=== PATIENT | female | born 1955 | race Caucasian/White ===

== ENCOUNTER → 2019-07-16 12:40 | Outpatient (BNVA) | payer OTHER, SELFPAY | PROVIDERS: Family Provider Family Medicine; Visit Provider Nurse Practitioner | DX: F41.1 Generalized anxiety disorder (principal); F34.1 Dysthymic disorder; F90.0 Attention-deficit hyperactivity disorder, predominantly inattentive type | CPT/HCPCS: 99213 ==

== ENCOUNTER 2019-08-11 09:56 | Outpatient (CLI) | payer OTHER, SELFPAY ==
--- NOTE | 2019-08-11 10:07 | XR_ITS ---
NOTE: Report was unsigned for reason: Order was edited. Original Signature date and time was: 08/11/19 AT 1212 WS: [id number] CERVICAL SPINE TECHNIQUE: 3 views of the cervical spine CLINICAL INFORMATION: PAIN COMPARISON: None. FINDINGS: Moderate spondylitic changes cervical spine with facet arthropathy. Normal C1-2 articulation. Straightening of the normal cervical lordosis. Spondylitic changes with disc space narrowing worse at C5-C6, C6-C7 and C7-T1. Normal prevertebral soft tissues. MTDD
--- NOTE | 2019-08-11 10:07 | XR_ITS ---
WS: [id number] THORACIC SPINE TECHNIQUE: 3 views of the thoracic spine CLINICAL INFORMATION: PAIN COMPARISON: None. FINDINGS: Mild thoracic curve convex left. Mild spondylitic changes. Disc space narrowing cervical spine worse at C6-7. No acute appearing thoracic compression fractures. Minimal chronic appearing anterior wedgin g lower thoracic spine. XR/XR thoracic spine 3V* [id number] IMPRESSION: 1. No acute thoracic spine findings 2. Mild thoracic curve convex left with mild spondylitic changes.
== END 2019-08-11 09:57 | disposition home or self-care (01) ==
LOC: RAD 10:04
PROVIDERS: Family Provider Family Medicine; PCP Family Medicine; Visit Provider Family Medicine
DX: M54.6 Pain in thoracic spine (principal); M54.12 Radiculopathy, cervical region; M47.812 Spondylosis without myelopathy or radiculopathy, cervical region
CPT/HCPCS: 72050; 72052; 72072

== ENCOUNTER 2019-08-23 08:23 | Outpatient (CLI) | payer OTHER, SELFPAY ==
--- NOTE | 2019-08-23 | MR_ITS ---
WS: [id number] MRI CERVICAL SPINE NONCONTRAST TECHNIQUE: Sagittal T1, T2 and STIR imaging. Axial T2, gradient, and fiesta imaging. CLINICAL INFORMATION: CERVICAL RADICULOPATHY COMPARISON: None. FINDINGS: Straightening of the normal cervical lordosis. Moderate spondylitic changes cervical spine with disc osteophyte complex C4-C7. Cord signal is normal. C2-C3: Mild left and no significant right foraminal narrowing. Spinal canal is patent. C3-C4: Mild disc osteophytic ridging. Moderate right and no significant left foraminal narrowing. Spi nal canal is patent. Mild facet arthropathy. Edema in the right C3-4 facets consistent with mild syno vitis. C4-C5: Small central disc osteophyte protrusion with slight contact of the cervical cord. Mild centra l canal stenosis. Mild bilateral foraminal narrowing. Mild facet arthropathy. C5-C6: Right pericentral disc osteophyte protrusion. Mild central canal stenosis. Slight contact of t he right ventral cervical cord. Mild to moderate left foraminal narrowing. C6-C7: Left pericentral disc osteophyte complex with contact of the left ventral cervical cord. Mild central canal stenosis. Moderate left foraminal narrowing. Right foramen is patent. C7-T1: Disc osteophyte complex with endplate ridging. Moderate bilateral left greater than right bony foraminal narrowing. Mild central canal stenosis. T2 hyperintense left thyroid nodule measuring 11 mm. This can be further evaluated with ultrasound. T iny right thyroid nodule measuring 3 mm. MR/MR cervical spin wo con* [id number] IMPRESSION: 1. Straightening of the normal cervical lordosis with moderate spondylitic lou nges. 2. Mild to moderate central canal stenosis with small disc osteophyte protrusi ons C4-C7. 3. Slight contact of the cervical cord due to disc osteophyte protrusions at C 4-C5, C5-C6, and C6-C7 described above. 4. Multilevel mild to moderate bony foraminal narrowing worse at right C3-C4, left C6-C7, and bilateral C7-T1. 5. Edema in the articulating right C3-4 facets consistent with synovitis. Juan Manuel mmend correlation for right neck pain. 6. Dominant left thyroid nodule measuring 11.4 mm. This could be further evalu ated with ultrasound.
--- NOTE | 2019-08-23 | MR_ITS ---
WS: [id number] MRI THORACIC SPINE WITHOUT CONTRAST TECHNIQUE: Sagittal T1, T2 and STIR imaging. Axial T2 imaging. Noncontrast imaging obtained. CLINICAL INFORMATION: BACK PAIN, THORACIC REGION COMPARISON: None. FINDINGS: Mild thoracic curve. Mild thoracic kyphosis. No high-grade central canal narrowing. Cord signal is no rmal. A few tiny disc protrusions in the thoracic spine more prominent at left T2-3, right T4-5, T5- 6, and T12-L1. Moderate facet arthropathy in the lower thoracic spine. No high-grade spinal canal or foraminal narrowing. Mild bilateral T8-9 bony foraminal narrowing. Adrenal glands are normal. Normal caliber thoracic aorta. MR/MR thoracic spin wo con* [id number] IMPRESSION: 1. Mild thoracic curve with mild thoracic kyphosis. 2. No high-grade spinal canal or foraminal narrowing. 3. Mild bilateral T8-9 bony foraminal narrowing. 4. A few small disc protrusions described above more prominent at T5-T6 withou t significant spinal canal or foraminal narrowing. 5. Moderate facet arthropathy in the lower thoracic spine.
== END 2019-08-23 08:24 | disposition home or self-care (01) ==
LOC: RADSHAW 08:30
PROVIDERS: Family Provider Family Medicine; PCP Family Medicine; Visit Provider Family Medicine
DX: M54.12 Radiculopathy, cervical region (principal); M40.294 Other kyphosis, thoracic region; M48.04 Spinal stenosis, thoracic region; M51.24 Other intervertebral disc displacement, thoracic region; M47.814 Spondylosis without myelopathy or radiculopathy, thoracic region; M48.02 Spinal stenosis, cervical region; M25.78 Osteophyte, vertebrae; R60.9 Edema, unspecified
CPT/HCPCS: 72141; 72146

== ENCOUNTER → 2019-10-15 08:11 | Outpatient (BNVA) | payer OTHER, SELFPAY | PROVIDERS: Family Provider Family Medicine; PCP Family Medicine; Visit Provider Nurse Practitioner | DX: F90.0 Attention-deficit hyperactivity disorder, predominantly inattentive type (principal); F34.1 Dysthymic disorder; F41.1 Generalized anxiety disorder | CPT/HCPCS: 99213 ==

== ENCOUNTER 2019-10-21 14:13 | Outpatient (CLI) | payer OTHER, SELFPAY ==
--- NOTE | 2019-10-21 14:35 | MR_ITS ---
WS: [id number] MRI RIGHT KNEE NONCONTRAST TECHNIQUE: Axial PD, coronal PD fat sat, coronal PD, sagittal PD, and sagittal PD fat-sat images obta ined. CLINICAL INFORMATION: KNEE PAIN, RIGHT CHRONIC FINDINGS: Distal quadriceps and patella tendons are intact. Small amount of prepatellar and infrapatellar soft tissue edema. Hypertrophic patella. Anterior cruciate and posterior cruciate ligaments are intact. Mo derate suprapatellar effusion. Edema in Hoffa's fat pad. Intrasubstance signal abnormality medial meniscus. Chronic thinning of the medial meniscus. Blunting with loss of the of the anterior horn lateral meniscus likely postoperative due to prior partial meni scectomy. Posterior horn is better preserved. Advanced chondromalacia patella. No subchondral edema. Normal medial and lateral patella retinaculum. Medial and lateral collateral ligaments are intact. Subchondral cystic change along the tibial spine s. Moderate chondromalacia involving the medial and lateral joint compartments. Hypertrophic changes along the joint line. MR/MR knee RT wo con* [id number] IMPRESSION: 1. Normal anterior and posterior cruciate ligaments. 2. Moderate suprapatellar effusion. Hypertrophic patella. 3. Moderate to advanced chondromalacia patella. No subchondral edema. 4. Blunting of the anterior horn lateral meniscus likely due to prior meniscec nona. Chronic intrasubstance signal abnormality involving the medial meniscus. 5. Medial and lateral collateral ligaments are intact.
== END 2019-10-21 14:14 | disposition home or self-care (01) ==
LOC: RADWPI 14:15
PROVIDERS: Family Provider Family Medicine; PCP Family Medicine; Visit Provider Family Medicine
DX: M25.561 Pain in right knee (principal); G89.29 Other chronic pain; M25.461 Effusion, right knee; M22.41 Chondromalacia patellae, right knee
CPT/HCPCS: 73721

== ENCOUNTER 2019-11-01 12:00 | Outpatient (CLI) | payer OTHER, SELFPAY | END 2019-11-01 12:01 | disposition home or self-care (01) | LOC: SLEEP 11-03 11:02 | PROVIDERS: Family Provider Family Medicine; PCP Family Medicine; Visit Provider Family Medicine | DX: G47.33 Obstructive sleep apnea (adult) (pediatric) (principal) | CPT/HCPCS: G0399 ==

== ENCOUNTER → 2019-11-03 10:59 | Outpatient (BNVA) | payer OTHER, SELFPAY | PROVIDERS: Family Provider Family Medicine; PCP Family Medicine; Referring Provider Family Medicine; Visit Provider Specialist | DX: M17.11 Unilateral primary osteoarthritis, right knee (principal); M25.461 Effusion, right knee; M25.561 Pain in right knee | CPT/HCPCS: 73560; 73565 ==

== ENCOUNTER 2019-11-04 07:40 | Outpatient (CLI) | payer OTHER, SELFPAY ==
--- NOTE | 2019-11-04 07:45 | MR_ITS ---
WS: [id number] MRI HEAD WITH CONTRAST TECHNIQUE: Sagittal T1, T2 axial, T2 axial FLAIR, axial susceptibility weighted imaging, axial diffus ion weighted images, and coronal T2 images were obtained. Pre and post-T1 axial and post T1 coronal i mages. ADC and FSPGR images. CLINICAL INFORMATION: ANOSOMIA COMPARISON: None. FINDINGS: No evidence of restricted diffusion to suggest acute ischemia. Ventricular system and basal cisterns are patent. Moderate small vessel changes. Mild parenchymal volume loss. Mild small vessel changes in the mae. Normal vascular flow voids at the skull base. Partial opacification mastoid air cells bila terally. No hemosiderin on susceptibly weighted images. No abnormal gadolinium enhancement. Normal optic chias m and pituitary infundibulum. Normal cavernous sinuses and Meckel's cave. Normal visualized dural dagoberto ous sinuses. Temporal lobes and inferior frontal lobes are normal in appearance. MR/MR head wo/w con [id number] IMPRESSION: 1. No evidence of restricted diffusion to suggest acute ischemia. 2. Moderate small vessel changes with mild parenchymal volume loss. 3. No abnormal gadolinium enhancement. 4. Inferior frontal lobes are normal in appearance. Normal gyrus recti. 5. Mild mucosal thickening in the mastoid air cells. 6. Paranasal sinuses are well aerated. 7. No abnormal gadolinium enhancement.
== END 2019-11-04 07:41 | disposition home or self-care (01) ==
LOC: RADSHAW 07:43
PROVIDERS: PCP Family Medicine; Visit Provider Specialist
DX: R43.0 Anosmia (principal)
CPT/HCPCS: 70553; A9579

== ENCOUNTER → 2020-01-26 07:40 | Outpatient (BNVA) | payer OTHER, SELFPAY | PROVIDERS: PCP Family Medicine; Visit Provider Nurse Practitioner | DX: F90.0 Attention-deficit hyperactivity disorder, predominantly inattentive type (principal); F34.1 Dysthymic disorder; F41.1 Generalized anxiety disorder | CPT/HCPCS: 99214 ==

== ENCOUNTER → 2020-03-23 08:25 | Outpatient (BNVA) | payer OTHER, SELFPAY | PROVIDERS: PCP Family Medicine; Visit Provider Nurse Practitioner | DX: F41.1 Generalized anxiety disorder (principal); F34.1 Dysthymic disorder; F90.0 Attention-deficit hyperactivity disorder, predominantly inattentive type | CPT/HCPCS: 99214 ==

== ENCOUNTER → 2020-07-07 07:59 | Outpatient (BNVA) | payer OTHER, SELFPAY | PROVIDERS: PCP Family Medicine; Visit Provider Nurse Practitioner | DX: F90.0 Attention-deficit hyperactivity disorder, predominantly inattentive type (principal); F34.1 Dysthymic disorder; F41.1 Generalized anxiety disorder | CPT/HCPCS: 99214 ==

== ENCOUNTER 2020-09-15 18:57 | Emergency (ER) | payer OTHER, SELFPAY ==
--- NOTE | 2020-09-15 18:59 | XRR_ITS ---
PROCEDURE INFORMATION: Exam: XR Abdomen Exam date and time: 09/15/2020 7:08 PM Age: 65 years old Clinical indication: Patient HX: C/O constipation x 7 days; Nausea. Tried mag citrate-could not keep it down. Had total knee surgery 1 week ago and has not had bm since before surgery. TECHNIQUE: Imaging protocol: XR of the abdomen. Views: Frontal supine view of the abdomen. 1 View. COMPARISON: CT abdomen w con* [id number] 02/11/2018 2:05 PM FINDINGS: Gastrointestinal tract: Constipation involving largely the ascending and transverse colon without bowel dilation or air-fluid levels to indicate obstruction. Bones/joints: Unremarkable. XR/XR KUB [id number] IMPRESSION: Constipation involving largely the ascending and transverse colon without bowel dilation or air-fluid levels to indicate obstruction.
[2020-09-15 19:08] VITALS: BP 171/84; PULSE 71; RESP 16; TEMP 36.7; O2SAT 98; BMI 35.2
--- NOTE | 2020-09-15 19:35 | W.ED.GENADLT ---
HPI - General Adult General: Chief complaint: General Medical Stated complaint: constipation x7 days Time Seen by Provider: 09/15/20 19:16 Source: patient and family () Mode of arrival: ambulatory Limitations: no limitations History of Present Illness: HPI narrative: This is a 65-year-old female patient who presents to the emergency department with constipation of 9 days duration. She had not had a bowel movement for 2 days prior to right knee total knee arthroplasty. She continues without a bowel movement till today and has tried several [id number] medications. Today she called the nurse and she was advised to take magnesium citrate but unfortunately she was unable to keep it down and vomited. This has been her only episode of vomiting. She denies nausea otherwise. No abdominal distention. No abdominal pain. Onset (ago): day(s) (9) Associated symptoms: Reports nausea and vomiting; Deny chest pain, confusion, cough, diaphoresis, decreased appetite, dyspnea, fevers/chills, headache(s), malaise, rash, palpitations, seizures, short of breath, syncope or weakness Review of Systems General: Reports: 10 or more systems reviewed and unremarkable except in HPI and below Const: Denies: malaise or diaphoresis Card: Denies: chest pain, palpitations or syncope Resp: Denies: dyspnea GI: Reports: nausea, vomiting and constipation Skin/Breast: Denies: rash Neuro: Denies: headache(s) or confusion PFS ED PFSH: Medical History (Updated 09/15/20 @ 22:16 by Candido [place] [facility] [place] Attention-deficit hyperactivity disorder, predominantly inattentive type Dysthymic disorder Generalized anxiety disorder Surgical History History of total left knee replacement Social History Smoking and tobacco status: never smoked Physical Exam Const: COMMON NORMALS: no acute distress, average body habitus, patient oriented x3, no limitations, healthy appearing, alert and well nourished HENMT: COMMON NORMALS: normocephalic, atraumatic and moist oral mucous membranes HEAD & SCALP: normocephalic and atraumatic Neck/C-Spine: COMMON NORMALS: no meningeal signs and no JVD Resp: COMMON NORMALS: normal respiratory effort, No retractions, No use of accessory muscles, clear to auscultation bilaterally and percussion normal AUSCULTATION: clear to auscultation bilaterally PERCUSSION: percussion normal Cardio: COMMON NORMALS: no JVD, regular rate, regular rhythm, S1 normal heart sound present, S2 normal heart sound present, No gallops present (Cardio), No clicks present (Cardio), No murmurs present (Cardio), No rub (Cardio) and Peripheral pulses 2+ throughout RATE: regular rate RHYTHM: regular rhythm HEART SOUNDS: S1 normal heart sound present and S2 normal heart sound present PERIPHERAL PULSES: Peripheral pulses 2+ throughout GI: COMMON NORMALS: Soft to palpation, non-tender, No hepatosplenomegaly present, no masses and no bruits INSPECTION: Yes normal to inspection AUSCULTATION: Yes Hypoactive bowel sounds present PALPATION: Yes Soft to palpation, No Tenderness to palpation present (GI) and Yes No hepatosplenomegaly present Neuro: COMMON NORMALS: patient oriented x3 SENSORIUM/ORIENTATION: Yes alert MENINGEAL SIGNS: Yes no meningeal signs Skin: COMMON NORMALS: no rashes or lesions noted, no wounds, turgor normal, no jaundice, no petechiae and no mottling GENERAL SKIN EXAM: no rashes or lesions noted and turgor normal Course Reevaluation(s): Reevaluation #1: She has had a little bit of bowel movement but not very significant. She however thinks she is okay to be discharged home. We'll give a dose of lactulose in the emergency department and discharge her with a prescription for the same. She is advised to consume a high-fiber diet. She voiced understanding and is in agreement with the plan. Time: 20:03 Vital Signs: Vital signs: Vital Signs Temperature 98.1 F 09/15/20 19:08 Pulse Rate 68 09/15/20 20:14 Respiratory Rate 16 09/15/20 19:08 Blood Pressure 175/90 09/15/20 20:14 Pulse Oximetry 95 09/15/20 20:14 MDM - General Adult MDM Narrative: Medical decision making narrative: 65-year-old female patient who presents to the emergency department with constipation. She had not had a bowel movement for about 9 days. 2 days after her constipation started she had a total knee arthroplasty and has been on narcotic pain medication since then which has subsequently worsened her symptoms. X-ray done in the emergency department is negative for bowel obstruction. Attempts to relieve her constipation with a suppository, enema was only slightly successful. She is discharged home with a prescription for lactulose. She is to follow-up with her primary care provider and to consume a high fiber diet. Medical Records: Attestation: I reviewed the patient's medical records. Lab Data: Attestation: I reviewed the patient's lab results. Imaging Data^: Other Xray: Attestation: I personally reviewed and interpreted this imaging study as follows: Radiologist's impression: [place] [address] [id number] ReportSigned Patient: Myesha Cox #: [id number]: 7Acct#:[id number]/Sex: 65 / FADM Date: 09/15/20Loc: [facility]/Bed:Attending Dr: Ordering Provider/Ordering MD: Natasha De Los Santos MD Date of Service: 09/15/20 Procedure(s): XR KUB [id number] Accession Number(s): [id number] Report Number: [id number] PROCEDURE INFORMATION: Exam: XR Abdomen Exam date and time: 09/15/2020 7:08 PM Age: 65 years old Clinical indication: Patient HX: C/O constipation x 7 days; Nausea. Tried mag citrate-could not keep it down. Had total knee surgery 1 week ago and has not had bm since before surgery. TECHNIQUE: Imaging protocol: XR of the abdomen. Views: Frontal supine view of the abdomen. 1 View. COMPARISON: CT abdomen w con* [id number] 02/11/2018 2:05 PM FINDINGS: Gastrointestinal tract: Constipation involving largely the ascending and transverse colon without bowel dilation or air-fluid levels to indicate obstruction. Bones/joints: Unremarkable. XR/XR KUB [id number] IMPRESSION: Constipation involving largely the ascending and transverse colon without bowel dilation or air-fluid levels to indicate obstruction. Dictated By:Negro Portillo MDSigned By:Negro Portillo MDSigned Date/Time:09/15/202007DD/ 06 Discharge Plan Discharge Patient Disposition: Home Clinical Impression: Constipation Qualifiers: Constipation type: unspecified constipation type Qualified Code(s): K59.00 - Constipation, unspecified Condition: Stable Prescriptions: New lactulose 10 gram/15 mL solution 10 g PO DAILY PRN (Reason: constipation) Qty: 237 RF: 0 Continued losartan 100 mg tablet 100 mg PO DAILY@1000 RF: 0 hydrochlorothiazide 25 mg tablet 25 mg PO DAILY@1000 RF: 0 clonazepam [Klonopin] 0.5 mg tablet 0.5 mg PO BID PRN (Reason: anxiety) Qty: 180 RF: 0 celecoxib 200 mg capsule 200 mg PO DAILY@1000 RF: 0 sennosides-docusate sodium 8.6-50 mg Tablet 1 tab PO BID@1000,2200 RF: 0 amlodipine 2.5 mg tablet 2.5 mg PO DAILY@1000 RF: 0 aspirin 81 mg Tablet,Delayed Release (Dr/Ec) 81 mg PO DAILY@1000 RF: 0 tramadol 50 mg Tablet See Rx Instructions .ROUTE .COMPLEX RF: 0 famotidine 20 mg tablet 20 mg PO BID@1000,2200 RF: 0 oxycodone-acetaminophen 10-325 mg Tablet 1 tab PO Q4H PRN (Reason: Pain) RF: 0 oxybutynin chloride 5 mg tablet 5 mg PO DAILY@2200 RF: 0 omeprazole 20 mg Tablet,Delayed Release (Dr/Ec) 20 mg PO DAILY@1000 RF: 0 Stool Softener See Rx Instructions .ROUTE .COMPLEX RF: 0 Concerta 27 mg tablet extended release 24hr 27 mg PO DAILY@1000 RF: 0 Wellbutrin XL 150 mg tablet extended release 24 hr 150 mg PO DAILY@1000 RF: 0 Lunesta 3 mg tablet 3 mg PO BEDTIME@2200 RF: 0 Discharge Orders: Discharge ED (Routine); Ordered 09/15/20 Ordered By: Candido Warren Referrals: Demarcus Andrews MD [Primary Care Provider] - 1-3 days Discharge Diet: As Directed Discharge Activity: Increase activity as tolerated Patient Instructions: Constipation (ED), High Fiber Diet (ED) Activity Restrictions/Additional Instructions: Return for any new or worsening symptoms. Follow-up with your primary care provider within 3 days. Take the laxative once a day until you have regular bowel movements and then you can stop. Coding Level of Care Code ED Technical Illustrator for Chg Fwd Exam Detailed
[2020-09-15 20:14] VITALS: BP 175/90; PULSE 68; O2SAT 95
[2020-09-15] MEDS: bisacodyl 10 mg Supp PR (20:22)
[2020-09-15] MEDS: Fleet Enema 133 mL Enema PR (21:32)
[2020-09-15] MEDS: lactulose oral liq 20 gm/30 mL UDC 30 GM PO (23:42)
== END 2020-09-15 23:48 | disposition home or self-care (01) ==
PROVIDERS: Emergency Provider Family Medicine; PCP Family Medicine
DX: K59.00 Constipation, unspecified (principal); Z79.82 Long term (current) use of aspirin
CPT/HCPCS: 74018; 99283

== ENCOUNTER 2020-11-14 22:53 | Emergency (ER) | payer OTHER, SELFPAY ==
[2020-11-14 23:06] VITALS: BP 156/81; PULSE 75; RESP 16; TEMP 36.7; O2SAT 96; BMI 34.4
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
[2020-11-15 00:01] VITALS: BP 154/90; PULSE 74; RESP 19; O2SAT 96
[2020-11-15] MEDS: HYDROcodone-acetaminophen 5-325 mg Tablet 1 TAB PO (00:01)
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
[2020-11-15 01:09] VITALS: BP 153/82; PULSE 66; O2SAT 95
== END 2020-11-15 01:09 | disposition home or self-care (01) ==
PROVIDERS: Emergency Provider Emergency Medicine; PCP Family Medicine
DX: S80.12XA Contusion of left lower leg, initial encounter (principal); Z79.82 Long term (current) use of aspirin; Z96.652 Presence of left artificial knee joint; V86.59XA Driver of other special all-terrain or other off-road motor vehicle injured in nontraffic accident, initial encounter
CPT/HCPCS: 73562; 73590; 99283

== ENCOUNTER 2021-04-05 15:23 | Outpatient (CLI) | payer OTHER, SELFPAY ==
--- NOTE | 2021-04-05 15:35 | XR_ITS ---
WS: [id number] PA and lateral chest, 04/05/2021 Clinical Data: OTHER ALLERGIC RHINITIS Comparison: Portable chest, 12/19/2016. Findings: No nodules, masses or effusions are seen. The heart is normal. The aortic arch and descendi ng thoracic aorta show tortuosity. No pneumothorax or pneumonia is present. XR/XR chest 2V* [id number] Impression: Atherosclerosis.
== END 2021-04-05 15:24 | disposition home or self-care (01) ==
LOC: RAD 15:28
PROVIDERS: PCP Family Medicine; Visit Provider Specialist
DX: J30.89 Other allergic rhinitis (principal); I70.90 Unspecified atherosclerosis
CPT/HCPCS: 71046

== ENCOUNTER 2021-10-06 12:06 | Emergency (ER) | payer MEDICARE, SELFPAY ==
[2021-10-06 12:40] VITALS: BP 178/98; PULSE 70; RESP 16; TEMP 37.2; O2SAT 97; BMI 36.2
--- NOTE | 2021-10-06 13:08 | XRR_ITS ---
PROCEDURE INFORMATION: Exam: XR Right Foot Exam date and time: 10/06/2021 1:37 PM Age: 66 years old Clinical indication: Pain; Foot; Right; Additional info: Pain and swelling in great toe TECHNIQUE: Imaging protocol: XR Right foot. Views: 3 or more views. COMPARISON: CR XR knees AP WB w RT lmt ORTH 11/03/2019 11:07 AM FINDINGS: Bones/joints: Osseous structures are intact. Negative for fracture. Joint spaces are preserved. No irregular osseous erosions. Soft tissues: Normal. XR/XR foot RT min 3V* [id number] IMPRESSION: No acute findings.
--- NOTE | 2021-10-06 13:10 | ED_ITS ---
HPI - Extremity Problem General: Chief complaint: Extremity Injury, Lower Stated complaint: R Toe injury, leg pain too Time Seen by Provider: 10/06/21 12:45 History of Present Illness: Patient is a 66-year-old female comes to the ED with pain and swelling in the right great toe. Pain and swelling started yesterday. Pain is now rated a 10 out of 10 in is very sensitive to any touch. Pain is constant in any weightbearing or movement of the great toe causes worsening pain. The only time she gets any relief from pain is when she is at rest and not moving toe. She took some tramadol last night and it did not help with symptoms. Denies any recent injury or trauma to right foot and denies any history of gout. She does report that a couple days before symptoms started she had blister type callus on the dorsal aspect of right great toe that she picked at and popped blister. Pain and swelling started a couple days after that. Associated symptoms: Deny chest pain, fever(s) or rash Review of Systems Const: Denies: fever(s), chills or fatigue Eyes: Denies: change in vision or eye discomfort ENMT: Denies: throat pain, odynophagia, nasal discharge or nasal congestion Card: Denies: chest pain, palpitations, edema, swelling of feet/ankles, dyspnea on exertion or orthopnea Resp: Denies: dyspnea, productive cough or non-productive cough GI: Denies: abdominal pain, nausea, vomiting, diarrhea, constipation or hemat ochezia : Denies: flank pain, dysuria or hematuria Musc: Reports: extremity pain (right great toe) and extremity swelling (right great toe); Denies: neck pain or back pain Skin/Breast: Denies: rash or new lesions Neuro: Denies: headache(s), numbness in extremities or weakness in extremities PFSH ED PFSH: Medical History Attention-deficit hyperactivity disorder, predominantly inattentive type Dysthymic disorder Generalized anxiety disorder Psychiatric care Surgical History History of total left knee replacement Social History Smoking and tobacco status: never smoked Physical Exam Const: COMMON NORMALS: no acute distress, patient oriented x3 and alert GENERAL APPEARANCE: cooperative HENMT: COMMON NORMALS: normocephalic HEAD & SCALP: normocephalic MOUTH: Normal oral and palatal mucosa present THROAT: posterior oropharynx normal and uvula midline Neck/C-Spine: COMMON NORMALS: supple GENERAL: Yes normal visual inspection Resp: COMMON NORMALS: normal respiratory effort, No retractions, No use of accessory muscles and clear to auscultation bilaterally AUSCULTATION: clear to auscultation bilaterally Cardio: COMMON NORMALS: regular rate, regular rhythm, S1 normal heart sound present, S2 normal heart sound present, No gallops present (Cardio), No clicks present (Cardio), No murmurs present (Cardio) and Peripheral pulses 2+ throughout RATE: regular rate RHYTHM: regular rhythm HEART SOUNDS: S1 normal heart sound present and S2 normal heart sound present PERIPHERAL PULSES: Peripheral pulses 2+ throughout GI: COMMON NORMALS: Normal to inspection, nondistended, normoactive bowel sounds present, Soft to palpation, non-tender and no masses PALPATION: Yes Soft to palpation : COMMON NORMALS: Yes no CVA tenderness BLADDER/KIDNEY EXAM: Yes no CVA tenderness Back/Pelvis: COMMON NORMALS: no CVA tenderness Extremity: NARRATIVE EXTREMITY EXAM: Right great toe?erythema warmth and swelling. Tender and very sensitive to touch. Patient does have an overlying small ruptured blister. Exam findings suggestive of gout but cannot rule out possible cellulitis developing from ruptured blister. Neuro: COMMON NORMALS: patient oriented x3 and moves all extremities SENSORIUM/ORIENTATION: Yes alert Skin: NARRATIVE SKIN EXAM: Right great toe?small ruptured blister with surrounding erythema, warmth and tenderness. Findings more suggestive of possible gout with possible cellulitis developing as well. GENERAL SKIN EXAM: dry skin Course Vital Signs: Vital signs: Vital Signs Temperature 98.9 F 10/06/21 12:40 Pulse Rate 60 10/06/21 14:37 Respiratory Rate 16 10/06/21 14:37 Blood Pressure 171/93 10/06/21 14:37 Pulse Oximetry 94 10/06/21 14:37 MDM - Extremity (Nontraumatic) Medical Decision Making Patient is a 66-year female comes to the ED with right great toe pain and swelling. Exam findings suggestive of gout but some possible underlying cellulitis and right great toe as well due to ruptured blister. X-ray right foot showed no acute findings. Patient was given dose of colchicine here in the ED and hydrocodone for pain. Patient was diagnosed with gout and cellulitis who discharged home with a prescription for cephalexin, second dose of colchicine, prednisone, Celebrex and Telferner for pain. Follow-up with PCP in the next week for reevaluation. Return to ED precautions given. Patient stood agree with plan. Lab Data Radiology Impressions Foot X-Ray 10/06/21 13:08 IMPRESSION: No acute findings. Discharge Plan Discharge Patient Disposition: Home Clinical Impression: Gout Qualifiers: Gout site: toe Gout etiology: unspecified cause Chronicity: acute Laterality: right Qualified Code(s): M10.9 - Gout, unspecified Cellulitis Qualifiers: Site of cellulitis: extremity Site of cellulitis of extremity: toe Laterality: left Qualified Code(s): L03.032 - Cellulitis of left toe Condition: Stable Prescriptions: New prednisone 20 mg tablet 20 mg PO BID 5 Days Qty: 10 0RF cephalexin 500 mg capsule 500 mg PO Q6H 7 Days Qty: 28 0RF No Action losartan 100 mg tablet 100 mg PO DAILY@1000 0RF hydrochlorothiazide 25 mg tablet 25 mg PO DAILY@1000 0RF oxycodone-acetaminophen 5-325 mg tablet 1 tab PO Q6H PRN0RF bupropion HCl [Wellbutrin XL] 150 mg tablet extended release 24 hr 150 mg PO QAM Qty: 90 0RF clonazepam 1 mg tablet 1 mg PO BID PRN (Reason: anxiety) Qty: 180 0RF Lunesta 3 mg tablet 3 mg PO BEDTIME@2200 Qty: 90 0RF sertraline [Zoloft] 50 mg tablet 50 mg PO DAILY Qty: 90 0RF methylphenidate HCl [Concerta] 27 mg tablet extended release 24hr 27 mg PO DAILY@1000 30 Days Qty: 30 0RF methylphenidate HCl [Concerta] 27 mg tablet extended release 24hr 27 mg PO DAILY@1000 30 Days Qty: 30 0RF celecoxib 200 mg capsule 200 mg PO DAILY@1000 0RF amlodipine 2.5 mg tablet 2.5 mg PO DAILY@1000 0RF aspirin 81 mg Tablet,Delayed Release (Dr/Ec) 81 mg PO DAILY@1000 0RF oxybutynin chloride 5 mg tablet 5 mg PO DAILY@2200 0RF hydrocodone-acetaminophen 5-325 mg tablet 1 tab PO Q6H PRN (Reason: pain) Qty: 14 0RF Discharge Orders: Discharge ED (Routine); Ordered 10/06/21 Ordered By: Kris Collazo Referrals: Demarcus Andrews MD [Primary Care Provider] - Discharge Diet: Regular Discharge Activity: Increase activity as tolerated Activity Restrictions/Additional Instructions: Follow-up with medical provider as directed. Take medications as prescribed. Return to the ER or your medical provider if condition worsens. Please read and understand discharge instructions. Thank you for choosing [facility] for your healthcare needs today. Please realize this is an emergency room and that we are providing you with a medical screening exam and this may not be complete and all inclusive of all the testing and or work up that you may need to determine your ailment or severity of your illness. It is very important that you follow up as instructed or that you return to the Emergency Department should you have concerns or if your condition changes or worsens in any way. Coding Level of Care Code ED Fare Register Repairer for Fabiana Fwdulce Exam Comprehensive
[2021-10-06] MEDS: HYDROcodone-acetaminophen 7.5-325 mg Tablet 1 TAB PO (14:10)
[2021-10-06] MEDS: colchicine 0.6 mg Tablet 1.2 MG PO (14:10)
[2021-10-06 14:37] VITALS: BP 171/93; PULSE 60; RESP 16; O2SAT 94
== END 2021-10-06 14:38 | disposition home or self-care (01) ==
PROVIDERS: Emergency Provider Physician Assistant; PCP Family Medicine
DX: M10.9 Gout, unspecified (principal); L03.032 Cellulitis of left toe
CPT/HCPCS: 73630; 99283

== ENCOUNTER → 2021-10-16 14:02 | Outpatient (BNVA) | payer MEDICARE, OTHER, SELFPAY | PROVIDERS: PCP Family Medicine; Visit Provider Family Medicine | DX: M10.9 Gout, unspecified (principal) | CPT/HCPCS: 80053; 84550; 85025; 85651; 86140 ==

== ENCOUNTER → 2021-11-15 10:59 | Outpatient (BNVA) | payer MEDICARE, OTHER, SELFPAY | PROVIDERS: PCP Family Medicine; Visit Provider Family Medicine | DX: R63.1 Polydipsia (principal); E78.5 Hyperlipidemia, unspecified; I10 Essential (primary) hypertension; Z79.899 Other long term (current) drug therapy; E11.9 Type 2 diabetes mellitus without complications | CPT/HCPCS: 80053; 80061; 83036 ==

== ENCOUNTER → 2022-03-05 14:18 | Outpatient (BNVA) | payer MEDICARE, OTHER, SELFPAY | PROVIDERS: PCP Family Medicine; Visit Provider Family Medicine | DX: E11.9 Type 2 diabetes mellitus without complications (principal); I10 Essential (primary) hypertension; E78.5 Hyperlipidemia, unspecified | CPT/HCPCS: 83036 ==

== ENCOUNTER 2023-01-02 15:05 | Outpatient (CLI) | payer MEDICARE, OTHER, SELFPAY ==
--- NOTE | 2023-01-02 15:19 | XR_ITS ---
WS: [id number] Exam: XR chest 2V* [id number] Date/Time of Exam: 01/02/2023 3:30 PM Reason For Exam: focus on left ribs after a fall Comparison 04/05/2021. The lungs are clear and fully inflated. Normal cardiomediastinal silhouette. No pleural effusions. [place] structures are intact. No acute rib fractures are noted. IMPRESSION: 1. Negative chest. No acute rib fracture or other significant finding.
== END 2023-01-02 15:06 | disposition home or self-care (01) ==
PROVIDERS: PCP Family Medicine; Visit Provider Clinical Nurse Specialist Adult Health
DX: R07.81 Pleurodynia (principal); E11.9 Type 2 diabetes mellitus without complications; I10 Essential (primary) hypertension; E78.5 Hyperlipidemia, unspecified; W19.XXXA Unspecified fall, initial encounter
CPT/HCPCS: 71046; 80053; 80061; 83036

== ENCOUNTER 2023-01-18 10:01 | Emergency (ER) | payer MEDICARE, OTHER, SELFPAY ==
--- NOTE | 2023-01-18 10:06 | XRR_ITS ---
PROCEDURE INFORMATION: Exam: XR Chest Exam date and time: 01/18/2023 10:18 AM Age: 67 years old Clinical indication: Cough and fever and other: Covid TECHNIQUE: Imaging protocol: Radiologic exam of the chest. Views: 1 view. COMPARISON: CR XR chest 2V* [id number] 01/02/2023 3:24 PM FINDINGS: Lungs: Unremarkable. No consolidation. Pleural spaces: Unremarkable. No pleural effusion. No pneumothorax. Heart/Mediastinum: Unremarkable. No cardiomegaly. Bones/joints: Unremarkable. XR/XR chest 1V portable [id number] IMPRESSION: No acute findings.
[2023-01-18 10:10] VITALS: BP 145/92; PULSE 63; RESP 18; TEMP 37.7; O2SAT 95; BMI 34.1
[2023-01-18] MEDS: acetaminophen 500 mg Tablet 1000 MG PO (10:20)
--- NOTE | 2023-01-18 10:21 | W.ED.COVID ---
HPI - COVID General: Chief Complaint: COVID symptoms Stated Complaint: Fever/cough/exposed to Covid Time Seen by Provider: 01/18/23 10:07 Source: patient Mode of arrival: ambulatory Limitations: no limitations History of Present Illness: 67-year-old female states that since Friday she has had cough congestion sore throat and low-grade fevers along with body aches. She states she came down to take care of her friend who was diagnosed with COVID on Friday and has been very close exposure to her. She denies any vomiting denies any diarrhea she is in no distress here and is not hypoxic. COVID 19 common symptoms: positive fever(s), chills, non-productive cough, dyspnea, fatigue and body aches; negative headache(s), throat pain, nausea, vomiting or diarrhea COVID 19 other sytmptoms: negative chest pain COVID Results: SARS-CoV-2 Antigen (Rapid) Positive (Negative) H 01/18/23 10:16 Review of Systems Const: Reports: fever(s), chills, body aches and fatigue; Denies: change in appetite Eyes: Denies: blurry vision or eye discomfort ENMT: Denies: throat pain or dental pain Card: Denies: chest pain Resp: Reports: dyspnea and non-productive cough GI: Denies: abdominal pain, nausea, vomiting or diarrhea : Denies: dysuria Musc: Denies: neck pain or back pain Skin/Breast: Denies: rash Neuro: Denies: headache(s) PFSH ED PFSH: Medical History ADHD Attention-deficit hyperactivity disorder, predominantly inattentive type Chronic back pain Diabetes mellitus Dysthymic disorder Generalized anxiety disorder Hyperlipemia Hypertension TOBIAS (obstructive sleep apnea) Psychiatric care Thyroid nodule TIA (transient ischemic attack) Surgical History History of total left knee replacement Social History Smoking and tobacco status: never smoked Second hand smoke exposure: No Smoking risk assessment/counseling performed?: No Alcohol intake: current Alcohol intake frequency: holidays/special occasions only Alcohol type: beer, wine and hard liquor Desire information about alcohol rehabilitation?: No Counseling given: No Substance/Drug Use: never Desire information about substance/drug rehabilitation?: No Counseling given: No Physical Exam Const: COMMON NORMALS: no acute distress, patient oriented x3 and healthy appearing HENMT: COMMON NORMALS: normocephalic and atraumatic HEAD & SCALP: normocephalic and atraumatic THROAT: posterior oropharynx normal Eye: COMMON NORMALS: conjunctivae normal CONJUNCTIVA: Yes conjunctivae normal Neck/C-Spine: COMMON NORMALS: full ROM and supple Chest: COMMONS NORMALS: normal inspection of the chest and normal palpation of entire chest wall Resp: COMMON NORMALS: normal respiratory effort, No retractions, No use of accessory muscles and clear to auscultation bilaterally AUSCULTATION: clear to auscultation bilaterally Cardio: COMMON NORMALS: regular rate, regular rhythm and No murmurs present (Cardio) RATE: regular rate RHYTHM: regular rhythm GI: COMMON NORMALS: Normal to inspection, nondistended, normoactive bowel sounds present, Soft to palpation, non-tender and no masses PALPATION: Yes Soft to palpation Extremity: COMMON NORMALS: normal to inspection and full ROM Neuro: COMMON NORMALS: patient oriented x3, moves all extremities and no focal motor deficits Psych: COMMON NORMALS: mental status grossly normal, Normal thought process present and cooperative THOUGHT PROCESS: Normal thought process present Skin: COMMON NORMALS: no rashes or lesions noted and no wounds GENERAL SKIN EXAM: no rashes or lesions noted Course Vital Signs: Vital signs: Vital Signs Temperature 98.2 F 01/18/23 10:35 Pulse Rate 58 L 01/18/23 10:35 Respiratory Rate 16 01/18/23 10:35 Blood Pressure 157/69 01/18/23 10:35 Pulse Oximetry 95 01/18/23 10:35 Oxygen Delivery Me thod Room Air 01/18/23 10:35 MDM - COVID Medical Decision Making Patient presents here with COVID she is well-appearing here she is not hypoxic we will prescribe her Paxlovid she is return with worsening symptoms or hypoxia she understands agrees to plan. Medical Records I reviewed the patient's medical records. Lab Data Radiology Impressions Chest X-Ray 01/18/23 10:06 IMPRESSION: No acute findings. Laboratory Results SARS-CoV-2 Ag (Rapid) Positive (Negative) H 01/18/23 10:16 SARS-CoV-2 Antigen (Rapid) Positive (Negative) H 01/18/23 10:16 All radiology interpretation(s) finalized by discharge Discharge Plan Discharge Patient Disposition: Home Clinical Impression: COVID-19 Condition: Stable Prescriptions: New Paxlovid 300 mg (150 mg x 2)-100 mg tablets,dose pack See Rx Instructions .ROUTE .COMPLEX Qty: 30 0RF Rx Instructions: take TWO 150 mg tablets of nirmatrelvir with ONE 100 mg tablet of ritonavir twice daily for 5 days No Action omeprazole 20 mg capsule,delayed release(DR/EC) 20 mg PO BID oxybutynin chloride 5 mg tablet 5 mg PO DAILY@2200 Qty: 90 3RF sertraline [Zoloft] 100 mg tablet 100 mg PO DAILY Qty: 90 0RF propranolol 10 mg tablet 10 mg PO BID Qty: 180 0RF bupropion HCl [Wellbutrin XL] 300 mg tablet extended release 24 hr 300 mg PO QAM Qty: 90 0RF amlodipine 2.5 mg tablet 2.5 mg PO DAILY@1000 Qty: 90 3RF hydrochlorothiazide 25 mg tablet 25 mg PO DAILY@1000 Qty: 90 3RF losartan 100 mg tablet 100 mg PO DAILY@1000 Qty: 90 3RF hydrocodone-acetaminophen 5-325 mg tablet 1 tab PO Q8H PRN (Reason: pain) 14 Days Qty: 30 0RF trazodone 100 mg tablet 200 mg PO BEDTIME PRN (Reason: insomnia) levocetirizine 5 mg tablet 5 mg PO BID Discharge Orders: Discharge ED (Routine); Ordered 01/18/23 Ordered By: Natasha De Los Santos Referrals: Demarcus Andrews MD [Primary Care Provider] - 1-3 days Discharge Diet: Advance as tolerated Discharge Activity: Resume usual activity Patient Instructions: COVID-19 (Coronavirus Disease 2019) (ED) Coding Level of Care Code ED American Sign Language Teacher for Fabiana Rodarte
[2023-01-18 10:32] VITALS: O2SAT 98
[2023-01-18] MEDS: dexamethasone 10 mg/mL INJ IM (10:33)
[2023-01-18 10:35] VITALS: BP 157/69; PULSE 58; RESP 16; TEMP 36.8; O2SAT 95
[2023-01-18 10:53] LABS: SARS Covid-2 Antigen Positive (Negative)
--- NOTE | 2023-01-18 10:57 | PC.PHAR ---
MEDICATIONS ENTERED ARE FROM WHAT EXT MED HISTORY SHOWS HAS BEEN FILLED RECENTLY
[2023-01-18 11:02] VITALS: PULSE 56; O2SAT 94
== END 2023-01-18 11:03 | disposition home or self-care (01) ==
PROVIDERS: Emergency Provider Emergency Medicine; PCP Family Medicine
DX: U07.1 COVID-19 (principal); E11.9 Type 2 diabetes mellitus without complications; E78.5 Hyperlipidemia, unspecified; I10 Essential (primary) hypertension; Z86.73 Personal history of transient ischemic attack (TIA), and cerebral infarction without residual deficits
CPT/HCPCS: 71045; 87426; 96372; 99284; J1100

== ENCOUNTER 2023-04-17 09:32 | Outpatient (RCR) | payer MEDICARE, OTHER, SELFPAY | END 2023-05-04 23:59 | disposition home or self-care (01) | LOC: SPT 09:32 | PROVIDERS: PCP Family Medicine; Visit Provider Family Medicine | DX: R26.89 Other abnormalities of gait and mobility (principal) | CPT/HCPCS: 95992; 97161 ==

== ENCOUNTER → 2023-11-03 15:14 | Outpatient (BNVA) | payer MEDICARE, OTHER, SELFPAY | PROVIDERS: PCP Family Medicine; Visit Provider Family Medicine | DX: I10 Essential (primary) hypertension (principal); E78.5 Hyperlipidemia, unspecified; E11.9 Type 2 diabetes mellitus without complications | CPT/HCPCS: 80053; 80061; 83036; 85025 ==

== ENCOUNTER 2024-02-06 14:48 | Emergency (ER) | payer MEDICARE, OTHER, SELFPAY ==
[2024-02-06 15:26] VITALS: BP 162/69; PULSE 53; RESP 18; TEMP 36.4; O2SAT 94
--- NOTE | 2024-02-06 15:53 | W.ED.URI ---
HPI - URI/Sore Throat General: Chief Complaint: Upper Respiratory Infection Stated Complaint: nasal congestion, sneezing Time Seen by Provider: 02/06/24 15:43 Source: patient Mode of arrival: ambulatory Limitations: no limitations History of Present Illness: Patient is a 68-year-old female here for complaint of sneezing and nasal congestion. She states she has a longstanding history of allergies and believes her symptoms are related to this however she states she has a friend being seen here in the emergency department who is paranoid about COVID and suggested she get tested for COVID so she decided to check in for testing. Patient has no other symptoms apart from sneezing and nasal congestion. She appears in no acute distress upon arrival. MD elicited complaint: nasal congestion and other (sneezing) Onset (ago): day(s) Consistency: constant Severity: mild Description of mucous: clear Able to tolerate fluids by mouth: Yes Exacerbating factors: nothing Relieving factors: other (allergy medication) Context: sick contacts (around her friend who reportedly tested positive for COVID) Associated symptoms: Reports no associated symptoms and nasal congestion; Deny abdominal pain, chills, chest pain, diarrhea, ear or mastoid pain, fever(s), headache(s), nausea, sinus pain or vomiting Treatments prior to arrival: none Related Data Previous Rx's Medication Instructions Recorded hydrochlorothiazide 25 mg tablet 25 mg PO DAILY@1000 #90 tabs 12/30/22 losartan 100 mg tablet 100 mg PO DAILY@1000 #90 tabs 12/30/22 bupropion HCl 300 mg 24 hr tablet, 300 mg PO QAM #90 tabs 01/02/24 extended release (Wellbutrin XL) fluticasone propionate 50 1 spray intranasal BID #16 grams 01/02/24 mcg/actuation nasal spray,suspension (Flonase Allergy Relief) sertraline 100 mg tablet (Zoloft) 100 mg PO DAILY #90 tabs 01/02/24 trazodone 100 mg tablet 200 mg (2 x 100 mg) PO .HS #180 01/02/24 tabs amlodipine 2.5 mg tablet 2.5 mg PO DAILY@1000 #90 tabs 02/05/24 atorvastatin 10 mg tablet 10 mg PO DAILY #90 tabs 02/05/24 levocetirizine 5 mg tablet 5 mg PO BID #90 tabs 02/05/24 omeprazole 20 mg capsule,delayed 20 mg PO BID #180 caps 02/05/24 release oxybutynin chloride 5 mg tablet See Rx Instructions .Route 02/05/24 .COMPLEX #90 tabs propranolol 20 mg tablet 20 mg PO BID #180 tabs 02/05/24 Allergies Allergy/AdvReac Type Severity Reaction Status Date / Time No Known Allergies Allergy Verified 02/06/24 15:29 Review of Systems Const: Denies: fever(s), chills, body aches, fatigue or malaise Eyes: Denies: change in vision or blurry vision ENMT: Reports: nasal congestion and other (sneezing); Denies: throat pain, odynophagia, ear or mastoid pain or sinus pain Card: Denies: chest pain Resp: Denies: dyspnea, productive cough, non-productive cough or chest congestion GI: Denies: abdominal pain, nausea, vomiting or diarrhea Skin/Breast: Denies: rash Neuro: Denies: headache(s) PFSH ED PFSH: Medical History ADHD Thyroid nodule TOBIAS (obstructive sleep apnea) TIA (transient ischemic attack) Chronic back pain Hypertension Hyperlipemia Diabetes mellitus Psychiatric care Attention-deficit hyperactivity disorder, predominantly inattentive type Dysthymic disorder Generalized anxiety disorder Surgical History History of total left knee replacement Social History Smoking and tobacco/nicotine status: never used tobacco/nicotine Second hand smoke exposure: No Alcohol intake: current Alcohol intake frequency: holidays/special occasions only Alcohol type: beer, wine and hard liquor Substance/Drug Use: never Physical Exam Const: COMMON NORMALS: no acute distress, average body habitus, patient oriented x3, no limitations, alert and well nourished GENERAL APPEARANCE: cooperative ORIENTATION/CONSCIOUSNESS: Yes awake, Yes oriented to person, Yes oriented to place and Yes oriented to time HENMT: FACE & SINUS: normal facial exam NOSE: Other nasal findings present (nasal congestion) Eye: GENERAL EYE: appearance normal, both eyes and all related structures Neck/C-Spine: COMMON NORMALS: no lymphadenopathy Resp: COMMON NORMALS: normal respiratory effort and clear to auscultation bilaterally AUSCULTATION: clear to auscultation bilaterally Cardio: COMMON NORMALS: regular rate and regular rhythm RATE: regular rate RHYTHM: regular rhythm Neuro: COMMON NORMALS: patient oriented x3 SENSORIUM/ORIENTATION: Yes alert, Yes oriented to person, Yes oriented to place and Yes oriented to time Course Vital Signs: Vital signs: Vital Signs Temperature 97.5 F L 02/06/24 15:26 Pulse Rate 53 L 02/06/24 15:26 Respiratory Rate 18 02/06/24 15:26 Blood Pressure 162/69 02/06/24 15:26 Pulse Oximetry 94 02/06/24 15:26 Oxygen Delivery Me thod Room Air 02/06/24 15:26 MDM - URI/Sore Throat Medical Decision Making COVID negative. She will be allowed discharge. Lab Data Laboratory Results Coronavirus (PCR) Negative (Negative) 02/06/24 15:40 Influenza A (PCR) Negative (Negative) 02/06/24 15:40 Influenza Type B (PCR) Negative (Negative) 02/06/24 15:40 RSV (PCR) Negative (Negative) 02/06/24 15:40 No radiology studies performed this visit Discharge Plan Discharge Patient Disposition: Home Clinical Impression: Allergies Qualifiers: Encounter type: initial encounter Qualified Code(s): T78.40XA - Allergy, unspecified, initial encounter Condition: Stable Prescriptions: No Action bupropion HCl [Wellbutrin XL] 300 mg tablet extended release 24 hr 300 mg PO QAM Qty: 90 0RF trazodone 100 mg tablet 200 mg PO .HS Qty: 180 0RF sertraline [Zoloft] 100 mg tablet 100 mg PO DAILY Qty: 90 0RF fluticasone propionate [Flonase Allergy Relief] 50 mcg/actuation spray,suspension 1 spray intranasal BID Qty: 16 0RF Rx Instructions: administer into each nostril hydrochlorothiazide 25 mg tablet 25 mg PO DAILY@1000 Qty: 90 3RF losartan 100 mg tablet 100 mg PO DAILY@1000 Qty: 90 3RF amlodipine 2.5 mg tablet 2.5 mg PO DAILY@1000 Qty: 90 3RF atorvastatin 10 mg tablet 10 mg PO DAILY Qty: 90 11RF levocetirizine 5 mg tablet 5 mg PO BID Qty: 90 3RF omeprazole 20 mg capsule,delayed release(DR/EC) 20 mg PO BID Qty: 180 3RF oxybutynin chloride 5 mg tablet See Rx Instructions .ROUTE .COMPLEX Qty: 90 3RF Dose Instruction: TAKE 1 TABLET BY MOUTH DAILY AT 10 PM Rx Instructions: TAKE 1 TABLET BY MOUTH DAILY AT 10 PM propranolol 20 mg tablet 20 mg PO BID Qty: 180 3RF Discharge Orders: Discharge ED (Routine); Ordered 02/06/24 Ordered By: Flora Kirk Referrals: Demarcus Andrews MD [Primary Care Provider] - Activity Restrictions/Additional Instructions: COVID TESTING WAS NEGATIVE. Coding Level of Care Code ED Repairer Welding Equipment for Fabiana Rodarte
[2024-02-06 16:33] LABS: Covid PCR NEGATIVE (Negative); Influenza A NEGATIVE (Negative); Influenza B NEGATIVE (Negative); Respiratory Syncytial Virus Ce NEGATIVE (Negative)
[2024-02-06 16:51] VITALS: BP 155/90; PULSE 45; RESP 18; O2SAT 99
== END 2024-02-06 16:52 | disposition home or self-care (01) ==
PROVIDERS: Emergency Provider Physician Assistant; PCP Family Medicine
DX: T78.40XA Allergy, unspecified, initial encounter (principal); Z11.52 Encounter for screening for COVID-19; Z86.73 Personal history of transient ischemic attack (TIA), and cerebral infarction without residual deficits; I10 Essential (primary) hypertension; E78.5 Hyperlipidemia, unspecified; E11.9 Type 2 diabetes mellitus without complications
CPT/HCPCS: 0241U; 99283

== ENCOUNTER 2024-04-01 14:44 | Emergency (ER) | payer MEDICARE, OTHER, SELFPAY ==
[2024-04-01 14:55] VITALS: BP 167/72; PULSE 62; TEMP 36.7; O2SAT 96; BMI 35.5
--- NOTE | 2024-04-01 15:18 | W.ED.EAR ---
HPI - Ear Problem General: Chief complaint: Ear Stated complaint: ear pain Time Seen by Provider: 04/01/24 14:46 Source: patient Mode of arrival: ambulatory Limitations: no limitations History of Present Illness: Patient is a 68-year-old female presents to ED today with a complaint of left ear pain and discharge. She states she has been having trouble with the left ear over the past several months. She was recently treated for an ear infection with oral and otic drops. She states she was treated by Dr. Felton's office/nurse practitioner recently. She states these medications did help clear the infection but now it is back. She does have follow-up with Dr. Felton on 04/07. Patient is tearful due to the ear pain. No headache or fevers. She is not a diabetic. MD Complaint: ear pain and ear discharge Location: left ear Duration: constant Severity: moderate Relieving factors: other (oral and otic abx) Exacerbating factors: nothing Discharge from ear: yes - purulent Associated symptoms: Reports ear or mastoid pain; Denies fever(s), headache(s) or neck pain Related Data Previous Rx's Medication Instructions Recorded hydrochlorothiazide 25 mg tablet 25 mg PO DAILY@1000 #90 tabs 12/30/22 losartan 100 mg tablet 100 mg PO DAILY@1000 #90 tabs 12/30/22 fluticasone propionate 50 1 spray intranasal BID #16 grams 01/02/24 mcg/actuation nasal spray,suspension (Flonase Allergy Relief) amlodipine 2.5 mg tablet 2.5 mg PO DAILY@1000 #90 tabs 02/05/24 atorvastatin 10 mg tablet 10 mg PO DAILY #90 tabs 02/05/24 levocetirizine 5 mg tablet 5 mg PO BID #90 tabs 02/05/24 omeprazole 20 mg capsule,delayed 20 mg PO BID #180 caps 02/05/24 release oxybutynin chloride 5 mg tablet See Rx Instructions .Route 02/05/24 .COMPLEX #90 tabs propranolol 20 mg tablet 20 mg PO BID #180 tabs 02/05/24 sertraline 100 mg tablet (Zoloft) 100 mg PO DAILY #90 tabs 03/22/24 trazodone 100 mg tablet 200 mg (2 x 100 mg) PO .HS #180 03/22/24 tabs amoxicillin 875 mg tablet 875 mg PO BID #20 tabs 04/01/24 ciprofloxacin 0.3 %-dexamethasone 4 drp otic (ear) BID 7 days #7.5 mL 04/01/24 0.1 % ear drops,suspension hydrocodone 5 mg-acetaminophen 325 1 tab PO Q6H PRN pain #10 tabs 04/01/24 mg tablet Allergies Allergy/AdvReac Type Severity Reaction Status Date / Time No Known Allergies Allergy Verified 04/01/24 14:58 Review of Systems Const: Denies: fever(s), chills, body aches, fatigue or malaise Eyes: Denies: change in vision ENMT: Reports: ear or mastoid pain and ear discharge GI: Denies: nausea or vomiting Musc: Denies: neck pain Neuro: Denies: headache(s) PFSH ED PFSH: Medical History ADHD Thyroid nodule TOBIAS (obstructive sleep apnea) TIA (transient ischemic attack) Chronic back pain Hypertension Hyperlipemia Diabetes mellitus Psychiatric care Attention-deficit hyperactivity disorder, predominantly inattentive type Dysthymic disorder Generalized anxiety disorder Surgical History History of total left knee replacement Social History Smoking and tobacco/nicotine status: unknown if used tobacco/nicotine Second hand smoke exposure: No Alcohol intake: current Alcohol intake frequency: holidays/special occasions only Alcohol type: beer, wine and hard liquor Substance/Drug Use: never Physical Exam Const: COMMON NORMALS: no acute distress, patient oriented x3, no limitations, alert and well nourished GENERAL APPEARANCE: cooperative HENMT: COMMON NORMALS: external ears normal FACE & SINUS: normal facial exam and face symmetric EXTERNAL EAR: Yes external ears normal, Yes mastoids normal and Yes no periauricular adenopathy EXTERNAL AUDITORY CANAL: Abnormal EAC present EAC laterality: left (edema and purulent drainage) Details: edema, EAC tenderness and otic discharge Details: purulent discharge TYMPANIC MEMBRANE: TM normal on the right and unable to visualize TM (left) Neck/C-Spine: COMMON NORMALS: full ROM, no lymphadenopathy and no meningeal signs Neuro: COMMON NORMALS: patient oriented x3 and CN's II-XII intact bilaterally SENSORIUM/ORIENTATION: Yes alert MENINGEAL SIGNS: Yes no meningeal signs Course Vital Signs: Vital signs: Vital Signs Temperature 98.1 F 04/01/24 14:55 Pulse Rate 62 04/01/24 14:55 Blood Pressure 167/72 04/01/24 14:55 Pulse Oximetry 96 04/01/24 14:55 Oxygen Delivery Me thod Room Air 04/01/24 14:55 MDM - Ear Medical Decision Making Will place on Augmentin and Ciprodex. Recommend she keep her appointment with Dr. Romero scheduled 04/07. Medical Records I reviewed the patient's medical records. No radiology studies performed this visit Discharge Plan Discharge Patient Disposition: Home Clinical Impression: Otitis externa of left ear Qualifiers: Otitis externa type: unspecified type Chronicity: acute Qualified Code(s): H60.502 - Unspecified acute noninfective otitis externa, left ear Condition: Stable Prescriptions: New ciprofloxacin-dexamethasone 0.3-0.1 % drops,suspension 4 drp otic (ear) BID 7 Days Qty: 7.5 0RF hydrocodone-acetaminophen 5-325 mg tablet 1 tab PO Q6H PRN (Reason: pain) Qty: 10 0RF Continued amoxicillin 875 mg tablet 875 mg PO BID Qty: 20 0RF Discontinued cefdinir 300 mg capsule 300 mg PO BID Qty: 20 0RF Cipro HC 0.2-1 % drops,suspension 3 drp otic (ear) BID 7 Days Qty: 10 0RF No Action fluticasone propionate [Flonase Allergy Relief] 50 mcg/actuation spray,suspension 1 spray intranasal BID Qty: 16 0RF Rx Instructions: administer into each nostril trazodone 100 mg tablet 200 mg PO .HS Qty: 180 0RF sertraline [Zoloft] 100 mg tablet 100 mg PO DAILY Qty: 90 0RF hydrochlorothiazide 25 mg tablet 25 mg PO DAILY@1000 Qty: 90 3RF losartan 100 mg tablet 100 mg PO DAILY@1000 Qty: 90 3RF amlodipine 2.5 mg tablet 2.5 mg PO DAILY@1000 Qty: 90 3RF atorvastatin 10 mg tablet 10 mg PO DAILY Qty: 90 11RF levocetirizine 5 mg tablet 5 mg PO BID Qty: 90 3RF omeprazole 20 mg capsule,delayed release(DR/EC) 20 mg PO BID Qty: 180 3RF oxybutynin chloride 5 mg tablet See Rx Instructions .ROUTE .COMPLEX Qty: 90 3RF Dose Instruction: TAKE 1 TABLET BY MOUTH DAILY AT 10 PM Rx Instructions: TAKE 1 TABLET BY MOUTH DAILY AT 10 PM propranolol 20 mg tablet 20 mg PO BID Qty: 180 3RF Discharge Orders: Discharge ED (Routine); Ordered 04/01/24 Ordered By: Flora Kirk Referrals: Demarcus Andrews MD [Primary Care Provider] - Activity Restrictions/Additional Instructions: As we discussed, please follow-up with Dr. Felton at your currently scheduled appointment for further evaluation and treatment. Coding Level of Care Code ED Prospecting Observer for Fabiana Rodarte
[2024-04-01] MEDS: amoxicillin-clav 875-125 mg Tablet 1 TAB PO (16:00)
[2024-04-01] MEDS: HYDROcodone-acetaminophen 5-325 mg Tablet 2 TAB PO (16:00)
[2024-04-01] MEDS: ciprofloxacin-dexameth Otic Susp 7.5 mL Btl 4 DROP EAR-LEFT (16:01)
[2024-04-01 16:36] VITALS: BP 153/65; PULSE 53; O2SAT 97
== END 2024-04-01 16:38 | disposition home or self-care (01) ==
PROVIDERS: Emergency Provider Physician Assistant; PCP Family Medicine
DX: H60.502 Unspecified acute noninfective otitis externa, left ear (principal); Z86.73 Personal history of transient ischemic attack (TIA), and cerebral infarction without residual deficits; E11.9 Type 2 diabetes mellitus without complications; I10 Essential (primary) hypertension; E78.5 Hyperlipidemia, unspecified
CPT/HCPCS: 99283

== ENCOUNTER 2025-02-02 13:06 | Outpatient (CLI) | payer MEDICARE, OTHER, SELFPAY ==
--- NOTE | 2025-02-02 13:15 | XRR_ITS ---
PROCEDURE INFORMATION: Exam: XR Left Hip Exam date and time: 02/02/2025 1:20 PM Age: 69 years old Clinical indication: Hip pain; Left hip TECHNIQUE: Imaging protocol: Radiologic exam of the left hip. Views: 2 or 3 views hip with pelvis when performed. COMPARISON: CR XR KUB [id number] 09/15/2020 7:39 PM FINDINGS: Bones/joints: Unremarkable. No acute fracture. Soft tissues: Unremarkable. XR/XR hip LT 2-3V wo/w pel* [id number] IMPRESSION: No acute findings.
--- NOTE | 2025-02-02 13:15 | XRR_ITS ---
PROCEDURE INFORMATION: Exam: XR Left Knee Exam date and time: 02/02/2025 1:20 PM Age: 69 years old Clinical indication: Pain; Prior surgery; Surgery date: 6+ months; Surgery type: Left knee; Additional info: Knee pain TECHNIQUE: Imaging protocol: Radiologic exam of the left knee. Views: 3 views. COMPARISON: CR XR knee LT 3V* [id number] 11/14/2020 11:33 PM FINDINGS: Bones/joints: Postop changes of left knee arthroplasty are present. No evidence of loosening or fracture of the hardware. Soft tissues: Normal. XR/XR knee LT 3V* [id number] IMPRESSION: Status post left knee arthroplasty. No acute abnormality identified.
[2025-02-02 13:42] LABS: Hematocrit 38.0 % (36-47); Hemoglobin 13.00 g/dL (11.27-16.99); Mean Corpuscular HGB Conc 34.2 g/dL (30-55); Mean Corpuscular Hemoglobin 27.8 pg (27-33); Mean Corpuscular Volume 81.4 fl (85-98); Nucleated Red Blood Cells % 0 %; Platelet Count 228 10^3/cmm (157-399); Red Blood Count 4.67 10^6/uL (3.85-5.65); White Blood Count 6.18 10^3/uL (3.29-11.43)
[2025-02-02 14:16] LABS: Alanine Aminotransferase 18 U/L (0-33); Albumin Level 4.2 g/dL (3.5-5.2); Alkaline Phosphatase 72 U/L (35-105); Aspartate Amino Transferase 15 U/L (0-32); Blood Urea Nitrogen 15 mg/dL (8-23); Calcium 9.5 mg/dL (8.5-10.5); Carbon Dioxide 25 mmol/L (22-29); Chloride 95 mmol/L (98-107); Cholesterol 217 mg/dL (0-200); Globulin 3.4 g/dL (1.3-4.6); Glucose 118 mg/dL (65-115); HDL Cholesterol 63 mg/dL (60-100); Osmolality Calculated 276 mOsm/kg (285-295); Sodium 132 mmol/L (136-145); Thyroid Stimulating Hormone 1.09 uIU/mL (0.27-4.20); Total Protein 7.6 g/dL (6.6-8.7); Triglycerides 105 mg/dL (0-150)
[2025-02-02 14:22] LABS: Anion Gap 15.6 (5-19); Potassium 3.6 mmol/L (3.5-5.1)
[2025-02-02 14:43] LABS: Estmated Average Glucose 131; Hemoglobin A1C 6.2 % (4.0-6.0)
== END 2025-02-02 13:07 | disposition home or self-care (01) ==
PROVIDERS: PCP Family Medicine; Visit Provider Family Medicine
DX: F41.1 Generalized anxiety disorder (principal); I10 Essential (primary) hypertension; E78.5 Hyperlipidemia, unspecified; E11.9 Type 2 diabetes mellitus without complications; Z96.652 Presence of left artificial knee joint; Z47.1 Aftercare following joint replacement surgery; M25.562 Pain in left knee; M25.552 Pain in left hip
CPT/HCPCS: 36415; 73502; 73562; 80053; 80061; 83036; 84443; 85025

== ENCOUNTER → 2025-03-07 12:57 | Outpatient (BNVA) | payer MEDICARE, OTHER, SELFPAY | PROVIDERS: PCP Family Medicine; Visit Provider Nurse Practitioner Family | DX: L71.8 Other rosacea (principal); L72.0 Epidermal cyst; L82.1 Other seborrheic keratosis; L57.0 Actinic keratosis | CPT/HCPCS: 17000; 99204 ==

== ENCOUNTER 2025-04-25 16:15 | Outpatient (CLI) | payer MEDICARE, OTHER, SELFPAY ==
--- NOTE | 2025-04-25 16:23 | XRR_ITS ---
PROCEDURE INFORMATION: Exam: XR Abdomen Exam date and time: 04/25/2025 4:35 PM Age: 69 years old Clinical indication: Abdominal pain; Flank; Right; Prior surgery; Surgery date: 6+ months; Surgery type: Hysterectomy; Additional info: Right flank pain TECHNIQUE: Imaging protocol: Radiologic exam of the abdomen. Views: Frontal supine view of the abdomen. 1 View. COMPARISON: CR XR hip LT 2-3V wo/w pel* [id number] 02/02/2025 1:20 PM FINDINGS: Gastrointestinal tract: Normal. No bowel dilation. Bones/joints: Unremarkable. XR/XR KUB [id number] IMPRESSION: No acute findings.
[2025-04-25 16:52] LABS: Glucose Urine UA Negative (Normal); Nitrate Urine Negative (Negative); Specific Gravity, Urine 1.005 (1.005-1.030)
[2025-04-25 16:54] LABS: Add Urine Microscopic? YES
== END 2025-04-25 16:16 | disposition home or self-care (01) ==
LOC: RAD 16:20
PROVIDERS: PCP Family Medicine; Visit Provider Nurse Practitioner Family
DX: R10.A1 Flank pain, right side (principal); Z90.710 Acquired absence of both cervix and uterus
CPT/HCPCS: 74018; 81001